=== PATIENT | female | born 1990 | race Caucasian/White ===

== ENCOUNTER 2019-02-10 05:53 | Inpatient (IN) | payer BC ==
[~2019-02-10] VITALS: Ht 175.3 cm; Wt 103.0 kg
[2019-02-10] MEDS ORDERED: LACTATED RINGERS 1,000 ML IV SCH ×2 (05:54→07:35)
[2019-02-10] MEDS ORDERED: LACTATED RINGERS 1,000 ML IVBOLUS ONE (06:00)
[2019-02-10] MEDS ORDERED: SODIUM CITRATE/CITRIC ACID 15 ML UDC PO ONE (06:00)
[2019-02-10] MEDS ORDERED: METOCLOPRAMIDE 5 MG/ML, 2ML IV ONE (06:00)
[2019-02-10 06:05] VITALS: BP 129/75
[2019-02-10] MEDS ORDERED: NEWBORN KIT ONE (06:17)
[2019-02-10] MEDS ORDERED: OXYTOCIN 30U/ 0.9% NaCL 500ML 500 ML ONE (06:22)
[2019-02-10] MEDS ORDERED: METOCLOPRAMIDE 5 MG/ML, 2ML ONE (06:22)
[2019-02-10] MEDS ORDERED: SODIUM CITRATE/CITRIC ACID 15 ML UDC ONE (06:22)
[2019-02-10 06:27] LABS: BASOPHILS % (AUTO) 1 % (0-1); EOSINOPHILS # (AUTO) 0.09 x10^3/uL (0-0.4); EOSINOPHILS % (AUTO) 1 % (1-7); LYMPHOCYTES # (AUTO) 2.63 x10^3/uL (1-3.4); LYMPHOCYTES % (AUTO) 26 % (22-44); MD NO; MEAN CORPUSCULAR HEMOGLOBIN 29.2 pg (27.0-34.8); MEAN CORPUSCULAR HGB CONC 34.4 g/dL (32.4-35.8); MEAN CORPUSCULAR VOLUME 84.7 fL (80-100); MEAN PLATELET VOLUME 10.3 fL (7.4-10.4); MONOCYTES % (AUTO) 6 % (2-9); NEUTROPHILS # (AUTO) 6.74 x10^3/uL (1.8-6.8); NEUTROPHILS % (AUTO) 66 % (42-75); PLATELET COUNT 242 x10^3/uL (130-400); RED BLOOD COUNT 4.47 x10^6/uL (3.82-5.3); RED CELL DISTRIBUTION WIDTH 13.4 % (9.6-15.2)
[2019-02-10] MEDS ORDERED: morphine SULFATE/PF 0.5 MG/ML, 10ML ONE (07:07)
[2019-02-10] MEDS ORDERED: ONDANSETRON 2MG/ML, 2ML IV PRN (08:00)
[2019-02-10] MEDS ORDERED: CARBOPROST TROMETHAMINE 250 MCG/ML, 1ML IM PRN (08:00)
[2019-02-10] MEDS ORDERED: KETOROLAC 30 MG/1 ML IV SCH (08:00)
[2019-02-10] MEDS ORDERED: OXYcodone/APAP 5/325MG TABLET PO PRN (08:00)
[2019-02-10] MEDS ORDERED: IBUPROFEN 600 MG TABLET PO PRN (08:00)
[2019-02-10] MEDS ORDERED: DIPH,PERTUSS(ACELL),TET VAC/PF NC IM-VACC PRN (08:00)
[2019-02-10] MEDS ORDERED: MEASLES,MUMPS&RUBELLA VACC/PF 0.5 ML SQ-VACC PRN (08:00)
[2019-02-10] MEDS ORDERED: METHYLERGONOVINE 0.2 MG/ML IM PRN (08:00)
[2019-02-10] MEDS ORDERED: ACETAMINOPHEN 325 MG TABLET PO PRN ×2 (08:00)
[2019-02-10] MEDS ORDERED: MISOPROSTOL 200 MCG TABLET PR PRN (08:00)
[2019-02-10] MEDS ORDERED: morphine SULFATE 10 MG/ML, 1ML IM PRN (08:00)
[2019-02-10] MEDS ORDERED: ONDANSETRON 2MG/ML, 2ML ONE (08:18)
[2019-02-10] MEDS ORDERED: PHENYLEPHRINE 10 MG/ML ONE (08:18)
[2019-02-10] MEDS ORDERED: CEFAZOLIN 1,000 MG ONE (08:18)
[2019-02-10] MEDS ORDERED: WATER-INJECTION,STERILE 10 ML IV ONE (08:18)
[2019-02-10] MEDS ORDERED: EPHEDRINE 50 MG/ML, 1ML ONE (08:18)
[2019-02-10] MEDS ORDERED: OXYTOCIN 10 UNITS/ML, 1ML ONE (08:18)
[2019-02-10] MEDS: PRENATAL VIT/IRON/FA 1 EACH TABLET PO SCH (09:00)
[2019-02-10] MEDS: OXYTOCIN 30U/ 0.9% NaCL 500ML 500 ML IV SCH ×2 (10:01→17:35)
[2019-02-10] MEDS: LACTATED RINGERS 1,000 ML IV SCH ×2 (10:02→17:35)
[2019-02-10] MEDS: OXYcodone/APAP 5/325MG TABLET PO PRN ×2 (12:33→23:00)
[2019-02-10 13:30] VITALS: BP 139/79
[2019-02-10 16:51] LABS: BASOPHILS # (AUTO) 0.06 x10^3/uL (0-0.1); BASOPHILS % (AUTO) 1 % (0-1); EOSINOPHILS # (AUTO) 0.11 x10^3/uL (0-0.4); EOSINOPHILS % (AUTO) 1 % (1-7); LYMPHOCYTES # (AUTO) 1.64 x10^3/uL (1-3.4); LYMPHOCYTES % (AUTO) 14 % (22-44); MD NO; MEAN CORPUSCULAR HEMOGLOBIN 29.6 pg (27.0-34.8); MEAN CORPUSCULAR HGB CONC 34.5 g/dL (32.4-35.8); MEAN CORPUSCULAR VOLUME 85.6 fL (80-100); MEAN PLATELET VOLUME 9.5 fL (7.4-10.4); MONOCYTES # (AUTO) 0.68 x10^3/uL (0.2-0.8); MONOCYTES % (AUTO) 6 % (2-9); NEUTROPHILS % (AUTO) 79 % (42-75); PLATELET COUNT 180 x10^3/uL (130-400); RED BLOOD COUNT 3.68 x10^6/uL (3.82-5.3); RED CELL DISTRIBUTION WIDTH 13.4 % (9.6-15.2)
[2019-02-10 17:00] VITALS: BP 121/78
[2019-02-10 20:00] VITALS: BP 123/80
[2019-02-10] MEDS: SIMETHICONE 80 MG CHEW TAB PO PRN (22:32)
[2019-02-10] MEDS: DOCUSATE 100 MG CAPSULE PO PRN (22:32)
[2019-02-10] MEDS: KETOROLAC 30 MG/1 ML IV SCH (22:35)
[2019-02-11 00:30] VITALS: BP 124/81
[2019-02-11] MEDS: OXYTOCIN 30U/ 0.9% NaCL 500ML 500 ML IV SCH ×3 (03:35→23:35)
[2019-02-11] MEDS: LACTATED RINGERS 1,000 ML IV SCH ×3 (03:35→23:35)
[2019-02-11] MEDS: KETOROLAC 30 MG/1 ML IV SCH ×3 (04:24→18:06)
[2019-02-11] MEDS: SIMETHICONE 80 MG CHEW TAB PO PRN ×2 (04:24→16:17)
[2019-02-11 05:00] VITALS: BP 115/78
[2019-02-11] MEDS: OXYcodone/APAP 5/325MG TABLET PO PRN ×3 (05:41→21:18)
[2019-02-11 07:50] VITALS: BP 121/93
[2019-02-11] MEDS: PRENATAL VIT/IRON/FA 1 EACH TABLET PO SCH (09:00)
[2019-02-11] MEDS: DOCUSATE 100 MG CAPSULE PO PRN ×2 (11:30→21:18)
[2019-02-11 19:45] VITALS: BP 121/80
[2019-02-12] MEDS: KETOROLAC 30 MG/1 ML IV SCH ×2 (00:12→06:04)
[2019-02-12] MEDS: OXYcodone/APAP 5/325MG TABLET PO PRN ×2 (04:58→10:37)
[2019-02-12] MEDS: SIMETHICONE 80 MG CHEW TAB PO PRN (05:01)
[2019-02-12 06:35] VITALS: BP 110/69
[2019-02-12] MEDS: PRENATAL VIT/IRON/FA 1 EACH TABLET PO SCH (09:00)
[2019-02-12] MEDS: DOCUSATE 100 MG CAPSULE PO PRN (10:35)
[2019-02-12] MEDS ORDERED: IBUP-1222 PO (13:25)
[2019-02-12] MEDS ORDERED: OXYC-302 PO (13:26)
== END 2019-02-12 14:54 | disposition home or self-care (01) | DRG 787 ==
LOC: LDIP 05:53 → 2NW 10:30
PROVIDERS: ADMIT Obstetrics & Gynecology Maternal & Fetal Medicine; ATTEND Obstetrics & Gynecology Maternal & Fetal Medicine
PROC: 10D00Z1 Extraction of Products of Conception, Low, Open Approach (ICD-10-PCS; principal; 2019-02-10)
DX: O32.1XX0 Maternal care for breech presentation, not applicable or unspecified (principal); O99.354 Diseases of the nervous system complicating childbirth; O99.824 Streptococcus B carrier state complicating childbirth; G43.909 Migraine, unspecified, not intractable, without status migrainosus; Z37.0 Single live birth; Z3A.39 39 weeks gestation of pregnancy
CPT/HCPCS: 36415; 85025; 86850; 86900; G0378; J0690; J1885; J2274; J2405; J2370; J2590; J2765; J7120